=== PATIENT | female | born 1970 | race Caucasian/White ===

== ENCOUNTER 2022-05-30 10:10 | Day surgery (SDC) | payer OTHER ==
[2022-05-30] MEDS ORDERED: Lactated Ringers 1,000 ML IV SCH (11:00)
[2022-05-30] MEDS ORDERED: Midazolam 1 MG/ML 2 ML SDV ONE (11:25)
[2022-05-30] MEDS ORDERED: Propofol 200 MG/20 ML SDV ONE (11:25)
[2022-05-30] MEDS ORDERED: fentaNYL 100 MCG/2 ML SDV ONE (11:25)
== END 2022-05-30 14:57 | disposition home or self-care (01) ==
LOC: JP.SDS 10:10
PROVIDERS: ATTEND Family Medicine
DX: Z12.11 Encounter for screening for malignant neoplasm of colon (principal); D12.4 Benign neoplasm of descending colon
CPT/HCPCS: 45380; J2250; J2704; J3010; J7120; 88305